=== PATIENT | female | born 1955 ===

== ENCOUNTER 2022-06-23 00:02 | Emergency (ER) | payer MEDICARE ==
[~2022-06-23] VITALS: Ht 157.5 cm; Wt 70.0 kg
[2022-06-23 00:10] VITALS: BP 132/88
[2022-06-23] MEDS ORDERED: SODIUM CHLORIDE 0.9% 1,000 ML IV ONE (00:15)
[2022-06-23] MEDS ORDERED: INSULIN REGULAR, HUMAN 100 UNITS/ML IVP ONE (00:15)
[2022-06-23] MEDS ORDERED: INSULIN SQ (00:16)
== END 2022-06-23 01:08 | disposition left against medical advice (07) ==
LOC: EMS 00:06
DX: E11.65 Type 2 diabetes mellitus with hyperglycemia (principal); F41.9 Anxiety disorder, unspecified
CPT/HCPCS: 99281